=== PATIENT | female | born 1955 | race Caucasian/White ===

== ENCOUNTER 2018-01-05 07:30 | Inpatient (IN) | payer MEDICARE, MEDICAID ==
[~2018-01-05] VITALS: Ht 165.1 cm; Wt 82.0 kg
[2018-01-06] MEDS ORDERED: BUSP15TA PO (06:22)
[2018-01-06] MEDS ORDERED: CLON1TAB23 PO (06:22)
[2018-01-06] MEDS ORDERED: PREG75CA PO (06:22)
[2018-01-06] MEDS ORDERED: TRAZ150T62 PO (06:22)
[2018-01-06] MEDS ORDERED: DESV50TA20 PO (06:22)
[2018-01-06] MEDS ORDERED: MELA10CA PO (06:22)
[2018-01-06] MEDS ORDERED: BUPIVACAINE 0.25% ONE (06:42)
[2018-01-06 06:43] VITALS: BP 105/71
[2018-01-06] MEDS ORDERED: THROMBIN 5,000 UNIT VIAL TP ONE (06:43)
[2018-01-06] MEDS ORDERED: VANCOMYCIN 1,000 MG ONE (06:43)
[2018-01-06] MEDS ORDERED: LIDOCAINE/PF 0.5% ,50ML ONE (06:43)
[2018-01-06] MEDS ORDERED: EPINEPHRINE 1 MG/ML, 1ML ONE (06:43)
[2018-01-06] MEDS ORDERED: FENTANYL PF 250 MCG/5ML ONE (07:10)
[2018-01-06] MEDS ORDERED: MIDAZOLAM 1 MG/ML, 2ML ONE (07:10)
[2018-01-06] MEDS ORDERED: OXYC-307 PO (07:11)
[2018-01-06] MEDS ORDERED: PROPOFOL 10 MG/ML, 20ML ONE (07:12)
[2018-01-06] MEDS ORDERED: LIDOCAINE-MPF 2% ,5ML ONE (07:12)
[2018-01-06] MEDS ORDERED: SUCCINYLCHOLINE 20 MG/ML, 10ML ONE (07:12)
[2018-01-06] MEDS ORDERED: DEXAMETHASONE 4 MG/ML, 1ML ONE (07:12)
[2018-01-06] MEDS ORDERED: ROCURONIUM 10MG/ML,5ML ONE (07:12)
[2018-01-06] MEDS ORDERED: NEOSTIGMINE 1 MG/ML, 10ML ONE (07:12)
[2018-01-06] MEDS ORDERED: ONDANSETRON 2MG/ML, 2ML ONE (07:12)
[2018-01-06] MEDS ORDERED: CEFAZOLIN 1,000 MG ONE ×2 (07:12→07:40)
[2018-01-06] MEDS ORDERED: GLYCOPYRROLATE 0.2MG/1ML, 5ML ONE (07:12)
[2018-01-06] MEDS ORDERED: KETAMINE 50 MG/ML, 10ML ONE (07:24)
[2018-01-06] MEDS ORDERED: PROCHLORPERAZINE 5 MG/ML, 2ML IV PRN (07:30)
[2018-01-06] MEDS ORDERED: ACETAMINOPHEN 500 MG TABLET PO ONE (07:30)
[2018-01-06] MEDS ORDERED: ONDANSETRON ODT 8 MG PO PRN (07:30)
[2018-01-06] MEDS ORDERED: ONDANSETRON 2MG/ML, 2ML IV PRN ×2 (07:30→13:30)
[2018-01-06] MEDS ORDERED: MEPERIDINE/PF 25MG/0.5ML IVPush PRN (07:30)
[2018-01-06] MEDS ORDERED: GABAPENTIN 300 MG CAPSULE PO ONE (07:30)
[2018-01-06] MEDS ORDERED: FAMOTIDINE 20 MG TABLET PO ONE (07:30)
[2018-01-06] MEDS ORDERED: DIAZEPAM 5 MG/ML, 2ML IVPush PRN (07:30)
[2018-01-06] MEDS ORDERED: OXYcodone 5 MG/5 ML ORAL.SOL UDC PO PRN (07:30)
[2018-01-06] MEDS ORDERED: ONDANSETRON ODT 8 MG PO ONE (07:30)
[2018-01-06] MEDS ORDERED: PHENYLEPHRINE 10 MG/ML ONE (07:40)
[2018-01-06] MEDS ORDERED: DEXAMETHASONE 4 MG/ML, 5ML ONE (07:40)
[2018-01-06] MEDS ORDERED: EPHEDRINE 50 MG/ML, 1ML ONE (07:40)
[2018-01-06] MEDS ORDERED: LACTATED RINGERS 1,000 ML IV SCH (07:45)
[2018-01-06] MEDS ORDERED: NALOXONE 0.4 MG/ML, 1ML ONE (10:06)
[2018-01-06] MEDS ORDERED: OXYcodone 5 MG/5 ML ORAL.SOL UDC ONE (10:59)
[2018-01-06] MEDS ORDERED: HYDROmorphone 2 MG/ML, 1ML ONE ×3 (10:59→23:30)
[2018-01-06] MEDS ORDERED: FENTANYL PF 100 MCG/2ML ONE (10:59)
[2018-01-06] MEDS: FENTANYL PF 100 MCG/2ML IV PRN ×2 (11:05→11:27)
[2018-01-06] MEDS: HYDROmorphone 1 MG/ML, 1ML IV PRN ×2 (11:07→11:14)
[2018-01-06] MEDS ORDERED: PROMETHAZINE 25 MG/ML, 1ML IM PRN (13:30)
[2018-01-06] MEDS ORDERED: MAGNESIUM HYDROXIDE 8%, 30ML UDC PO PRN (13:30)
[2018-01-06] MEDS ORDERED: BISACODYL 10 MG SUPP PR PRN (13:30)
[2018-01-06 14:10] VITALS: BP 91/60
[2018-01-06] MEDS: CEFAZOLIN PMX 1GM/50ML 50 ML IVPB SCH (16:04)
[2018-01-06] MEDS: D5%-0.9% NACL+KCL 20MEQ 1,000 ML IV SCH ×2 (16:13→23:30)
[2018-01-06] MEDS: OXYcodone/APAP 10/325MG TABLET PO PRN (17:05)
[2018-01-06 19:54] VITALS: BP 123/78
[2018-01-06] MEDS: HYDROmorphone 1 MG/ML, 1ML IVPush PRN ×2 (20:30→23:33)
[2018-01-06] MEDS: MELATONIN 5 MG TABLET PO SCH (20:35)
[2018-01-06] MEDS: TRAZODONE 100MG TABLET PO SCH (20:35)
[2018-01-06] MEDS: PREGABALIN 75 MG CAPSULE PO SCH (20:35)
[2018-01-06] MEDS: BUSPIRONE 5 MG TABLET PO SCH (20:38)
[2018-01-06 23:55] VITALS: BP 100/65
[2018-01-07] MEDS: CEFAZOLIN PMX 1GM/50ML 50 ML IVPB SCH (01:31)
[2018-01-07] MEDS: OXYcodone/APAP 10/325MG TABLET PO PRN (03:24)
[2018-01-07 03:52] VITALS: BP 102/68
[2018-01-07] MEDS ORDERED: HYDROmorphone 2 MG/ML, 1ML ONE ×4 (05:51→16:17)
[2018-01-07] MEDS: HYDROmorphone 1 MG/ML, 1ML IVPush PRN ×4 (05:53→16:20)
[2018-01-07 06:39] LABS: ANION GAP 6 mmol/L (5-15); CALCIUM 8.4 mg/dL (8.5-10.1); CHLORIDE 107 mmol/L (98-107)
[2018-01-07 06:41] LABS: CREATININE 0.94 mg/dL (0.55-1.02)
[2018-01-07 06:54] LABS: BASOPHILS # (AUTO) 0.04 x10^3/uL (0-0.1); BASOPHILS % (AUTO) 0 % (0-1); EOSINOPHILS # (AUTO) 0.01 x10^3/uL (0-0.4); EOSINOPHILS % (AUTO) 0 % (1-7); LYMPHOCYTES # (AUTO) 2.43 x10^3/uL (1-3.4); LYMPHOCYTES % (AUTO) 16 % (22-44); MD NO; MEAN CORPUSCULAR HEMOGLOBIN 32.7 pg (27.0-34.8); MEAN CORPUSCULAR HGB CONC 33.1 g/dL (32.4-35.8); MEAN CORPUSCULAR VOLUME 98.8 fL (80-100); MEAN PLATELET VOLUME 7.3 fL (7.4-10.4); MONOCYTES % (AUTO) 6 % (2-9); NEUTROPHILS # (AUTO) 12.13 x10^3/uL (1.8-6.8); NEUTROPHILS % (AUTO) 78 % (42-75); PLATELET COUNT 283 x10^3/uL (130-400); RED BLOOD COUNT 3.31 x10^6/uL (3.82-5.3); RED CELL DISTRIBUTION WIDTH 13.3 % (9.6-15.2)
[2018-01-07 07:52] VITALS: BP 106/68
[2018-01-07] MEDS: PREGABALIN 75 MG CAPSULE PO SCH ×2 (09:10→20:06)
[2018-01-07] MEDS: SENNA/DOCUSATE TABLET PO SCH (09:10)
[2018-01-07] MEDS: BUSPIRONE 5 MG TABLET PO SCH ×2 (09:10→20:05)
[2018-01-07] MEDS: D5%-0.9% NACL+KCL 20MEQ 1,000 ML IV SCH ×2 (09:30→19:30)
[2018-01-07 13:39] VITALS: BP 90/58
[2018-01-07 18:37] VITALS: BP 111/71
[2018-01-07] MEDS: TRAZODONE 100MG TABLET PO SCH (20:05)
[2018-01-07] MEDS: MELATONIN 5 MG TABLET PO SCH (20:06)
[2018-01-07] MEDS: HYDROmorphone 2MG TABLET PO PRN (20:28)
[2018-01-07 21:46] VITALS: BP 97/59
[2018-01-08] MEDS: HYDROmorphone 2MG TABLET PO PRN (01:39)
[2018-01-08 03:05] VITALS: BP 107/66
[2018-01-08] MEDS: ACETAMINOPHEN 325 MG TABLET PO PRN (03:42)
[2018-01-08] MEDS: D5%-0.9% NACL+KCL 20MEQ 1,000 ML IV SCH ×2 (05:30→12:40)
[2018-01-08 06:20] LABS: BASOPHILS # (AUTO) 0.02 x10^3/uL (0-0.1); BASOPHILS % (AUTO) 0 % (0-1); EOSINOPHILS # (AUTO) 0.19 x10^3/uL (0-0.4); EOSINOPHILS % (AUTO) 2 % (1-7); LYMPHOCYTES # (AUTO) 3.27 x10^3/uL (1-3.4); LYMPHOCYTES % (AUTO) 32 % (22-44); MD NO; MEAN CORPUSCULAR HEMOGLOBIN 32.8 pg (27.0-34.8); MEAN CORPUSCULAR HGB CONC 33.3 g/dL (32.4-35.8); MEAN CORPUSCULAR VOLUME 98.3 fL (80-100); MEAN PLATELET VOLUME 7.7 fL (7.4-10.4); MONOCYTES # (AUTO) 0.73 x10^3/uL (0.2-0.8); MONOCYTES % (AUTO) 7 % (2-9); NEUTROPHILS # (AUTO) 5.92 x10^3/uL (1.8-6.8); NEUTROPHILS % (AUTO) 59 % (42-75); PLATELET COUNT 298 x10^3/uL (130-400); RED BLOOD COUNT 3.51 x10^6/uL (3.82-5.3); RED CELL DISTRIBUTION WIDTH 13.6 % (9.6-15.2)
[2018-01-08 06:53] VITALS: BP 95/60
[2018-01-08 07:08] LABS: ANION GAP 7 mmol/L (5-15); CALCIUM 8.6 mg/dL (8.5-10.1); CHLORIDE 102 mmol/L (98-107); CREATININE 0.87 mg/dL (0.55-1.02)
[2018-01-08] MEDS: BUSPIRONE 5 MG TABLET PO SCH ×2 (07:38→20:26)
[2018-01-08] MEDS: SENNA/DOCUSATE TABLET PO SCH (07:38)
[2018-01-08] MEDS: PREGABALIN 75 MG CAPSULE PO SCH ×2 (07:38→20:21)
[2018-01-08] MEDS ORDERED: DESVENLAFAXINE PO SCH (09:00)
[2018-01-08] MEDS: HYDROcodone/APAP 5/325 TABLET PO PRN ×2 (12:14→20:21)
[2018-01-08 12:30] VITALS: BP 119/78
[2018-01-08 18:53] VITALS: BP 96/62
[2018-01-08] MEDS: TRAZODONE 100MG TABLET PO SCH (20:21)
[2018-01-08] MEDS: MELATONIN 5 MG TABLET PO SCH (20:21)
[2018-01-09 01:30] VITALS: BP 106/71
[2018-01-09] MEDS: D5%-0.9% NACL+KCL 20MEQ 1,000 ML IV SCH (02:38)
[2018-01-09] MEDS: ACETAMINOPHEN 325 MG TABLET PO PRN (02:47)
[2018-01-09 08:33] VITALS: BP 101/66
[2018-01-09] MEDS: HYDROcodone/APAP 5/325 TABLET PO PRN ×2 (09:02→15:00)
[2018-01-09] MEDS: SENNA/DOCUSATE TABLET PO SCH (09:02)
[2018-01-09] MEDS: PREGABALIN 75 MG CAPSULE PO SCH (09:02)
[2018-01-09] MEDS: BUSPIRONE 5 MG TABLET PO SCH (09:02)
[2018-01-09 13:37] VITALS: BP 109/62
== END 2018-01-09 15:00 | disposition home or self-care (01) | DRG 460 ==
LOC: ORIP 01-06 05:40 → 4NOR 01-06 12:38
PROVIDERS: ADMIT Orthopaedic Surgery Orthopaedic Surgery of the Spine; ATTEND Orthopaedic Surgery Orthopaedic Surgery of the Spine
PROC: 0SG0071 Fusion of Lumbar Vertebral Joint with Autologous Tissue Substitute, Posterior Approach, Posterior Column, Open Approach (ICD-10-PCS; principal; 2018-01-06 07:30)
DX: M48.061 Spinal stenosis, lumbar region without neurogenic claudication (principal); M43.16 Spondylolisthesis, lumbar region; G89.29 Other chronic pain; M79.7 Fibromyalgia; Z96.659 Presence of unspecified artificial knee joint; Z88.5 Allergy status to narcotic agent; Z90.49 Acquired absence of other specified parts of digestive tract; Z90.89 Acquired absence of other organs; Z98.1 Arthrodesis status
CPT/HCPCS: 36415; 72100; 80048; 85025; C1713; G0378; J0171; J0690; J1100; J1170; J2001; J2250; J2310; J2405; J2704; J2710; J3010; J3360; J3370; J3490; Q0162; C1762; J0330; J2370; J3480